=== PATIENT | female | born 1935 | race Caucasian/White ===

== ENCOUNTER 2018-02-27 09:44 | Inpatient (IN) ==
[2018-02-20 12:00] LABS: Appearance,Urine CLEAR; Bacteria,Urine 0 /hpf (0); Bilirubin,Urine NEG (NEG); Color,Urine STRAW; Glucose,Urine (UA) NEGATIVE (NEG); Leukocyte Esterase,Urine 75 /uL (NEG); Mucus,Urine FEW /hpf (0); Protein,Urine NEG (NEG); Specific Gravity,Urine 1.011 (1.000-1.035); Urine Blood NEG mg/dL (<0.03); Urine RBC 1 /hpf (0-1); Urine Squamous Epithelial Cell < 1 /hpf (0-4); Urine WBC 6 /hpf (0-4); Urobilinogen,Urine NEG (NEG)
[2018-02-20 13:11] LABS: Basophils # (Auto) 0 K/mcL (0.0-0.3); Basophils % (Auto) 0.4 % (0.0-2.0); Eosinophils # (Auto) 0 K/mcL (0.0-0.7); Granulocytes % (Auto) 64.2 % (38.0-78.0); Lymphocytes # (Auto) 1.2 K/mcL (1.5-4.8); Lymphocytes % (Auto) 26.2 % (15.5-49.0); Mean Cell Volume 85.6 fL (80.0-100.0); Mean Corpuscular HGB Conc 33.6 g/dL (31.0-36.0); Mean Corpuscular Hemoglobin 28.8 pg (26.0-34.0); Monocytes # (Auto) 0.4 K/mcL (0.1-0.9); Monocytes % (Auto) 8.2 % (1.0-12.0); Platelet Count 201 K/mcL (140-440); RBC 4.13 M/mcL (4.00-5.20); Red Cell Distribution Width 13.8 % (11.5-14.5)
[2018-02-20 13:18] LABS: Blood Urea Nitrogen 18 mg/dl (8-23)
[~2018-02-27 09:44] MED LIST: ACETAMINOPHEN 500 MG TABLET PO SCH; CELECOXIB 200 MG CAPSULE PO SCH; IPRATROPIUM/ALBUTEROL 3 ML AMPUL.NEB NEB PRN; PREGABALIN 75 MG CAPSULE PO SCH; ceFAZolin 1 GM VIAL IV SCH; oxyCODONE 10 MG TAB.ER.12H PO SCH
[2018-02-27] MEDS ORDERED: SCOPOLAMINE 1 PATCH PATCH TOPICAL PRN (10:42)
[2018-02-27 11:20] LABS: Appearance,Urine CLEAR; Bacteria,Urine 0 /hpf (0); Bilirubin,Urine NEG (NEG); Color,Urine YELLOW; Glucose,Urine (UA) NEGATIVE (NEG); Leukocyte Esterase,Urine 75 /uL (NEG); Mucus,Urine FEW /hpf (0); Protein,Urine NEG (NEG); Specific Gravity,Urine 1.017 (1.000-1.035); Urine Blood NEG mg/dL (<0.03); Urine RBC 1 /hpf (0-1); Urine Squamous Epithelial Cell 0 /hpf (0-4); Urine WBC 3 /hpf (0-4); Urobilinogen,Urine NEG (NEG)
[2018-02-27] MEDS ORDERED: DEXAMETHASONE 10 MG/ML VIAL IV ONE (13:20)
[2018-02-27] MEDS ORDERED: ONDANSETRON 4 MG/2 ML VIAL IV ONE (13:20)
[2018-02-27] MEDS ORDERED: fentaNYL 250 MCG/5 ML VIAL IV ONE (13:20)
[2018-02-27] MEDS ORDERED: ROPIVACAINE HCL/PF 30 ML VIAL IJ ONE (13:20)
[2018-02-27] MEDS ORDERED: LIDOCAINE HCL/PF 100 MG/5 ML SYRINGE IV ONE (13:20)
[2018-02-27] MEDS ORDERED: MIDAZOLAM 2 MG/2 ML VIAL IV ONE (13:20)
[2018-02-27] MEDS ORDERED: TRANEXAMIC ACID 1,000 MG/10 ML VIAL IV ONE ×2 (13:20→14:37)
[2018-02-27] MEDS ORDERED: SUCCINYLCHOLINE 20 MG/ML ML IV ONE (13:20)
[2018-02-27] MEDS ORDERED: PROPOFOL 200 MG/20 ML VIAL IV ONE (13:20)
[2018-02-27] MEDS ORDERED: GENTAMICIN SULFATE 800 MG/20 ML VIAL IR ONE (13:45)
[2018-02-27] MEDS ORDERED: POLYETHYLENE GLYCOL 3350 17 GM PACKET PO PRN (14:37)
[2018-02-27] MEDS ORDERED: BISACODYL 10 MG SUPP.RECT PR PRN (14:37)
[2018-02-27] MEDS ORDERED: MAGNESIUM HYDROXIDE 30 ML ORAL.SUSP PO PRN (14:37)
[2018-02-27] MEDS ORDERED: ACETAMINOPHEN 325 MG TABLET PO PRN (14:37)
[2018-02-27] MEDS ORDERED: HYDROmorphone 2 MG/ML VIAL IV PRN (14:37)
[2018-02-27] MEDS ORDERED: FLEETS ADULT ENEMA PR PRN (14:37)
[2018-02-27] MEDS ORDERED: KETOROLAC 15 MG/ML VIAL IV PRN (14:37)
[2018-02-27] MEDS ORDERED: BENZOCAINE/MENTHOL 1 LOZENGE PO PRN (14:37)
[2018-02-27] MEDS ORDERED: TEMAZEPAM 15 MG CAPSULE PO PRN (14:37)
--- NOTE | 2018-02-27 14:53 | Operative Note ---
DATE OF OPERATION: 02/27/2018 PREOPERATIVE DIAGNOSIS: Right shoulder rotator cuff arthropathy and biceps tendinopathy. 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 PROCEDURE: Right reverse total shoulder and biceps tenodesis. SURGEON: Mikey Mccullough MD GRAIN BROKER: Selvin Ramirez PA-C ANESTHESIA: General LMA anesthesia. COMPLICATIONS: None. DESCRIPTION OF PROCEDURE: The patient was brought to the operating room and put to sleep with general LMA anesthesia. Once asleep, the patient had the right shoulder sterilely prepped and draped in the usual sterile fashion. Once done, we then confirmed the operative site, placed Ioban over the skin and made a deltopectoral approach. The deltoid and cephalic veins were retracted laterally, and exposed the joint. We retracted the conjoint tendon medially and then released the subscap tendon. Once released, we then identified the bicep tendon which was released and then biceps tenodesed to the pec major in the bicipital groove with two [id number] Ethibond stitches. We then prepared the glenoid, made the humeral head cut-130 degree angle was used at the end of the articular surface. Once this was cut at 20 degrees retroversion we then subluxed the head posteriorly. We then performed a 360 degree capsular release of the glenoid, placed a central pin and reamed to size. A 32 mm glenosphere was placed, the metaglene and glenosphere with a central screw measuring 32, 28 and 24. Once well fixed we then placed a glenosphere with 2 mm of offset with no eccentricity. This was tapped into place. We then prepared the humerus which then was prepared using a size 12 stem with bone cement and a +6 liner. This fit very nicely. We repaired the subscap anteriorly with a #1 Stratafix. We took the shoulder through full range of motion, irrigated thoroughly and then closed the deltopectoral interval and the subcutaneous tissues, placing an adhesive closure. The patient tolerated this well without complication. A DonJoy sling was fitted and given to the patient. [facility]:len Job ID: [id number] Doc ID: [id number] Mikey Mccullough MD
--- NOTE | 2018-02-27 15:52 | XRay Report ---
CLINICAL INFORMATION: Reason for Exam:Post-OP Total Shoulder COMPARISON: None. FINDINGS: Total shoulder prostheses is anatomically aligned. No osseous abnormality. Periarticular gas soft tissue thickening seen as expected IMPRESSION: Negative Interpreted and Authenticated by: Mitesh Hunt 02/27/18
[2018-02-27] MEDS: 0.45 % SODIUM CHLORIDE 1,000 ML IV SCH (17:01)
[2018-02-27] MEDS: ONDANSETRON 4 MG/2 ML VIAL IV PRN ×2 (17:09→21:15)
[2018-02-27] MEDS ORDERED: SENNOSIDES 1 TABLET PO SCH (21:00)
[2018-02-27] MEDS: ceFAZolin 1 GM VIAL IV SCH (21:15)
[2018-02-27] MEDS: DOCUSATE SODIUM 100 MG CAPSULE PO SCH (21:16)
[2018-02-27] MEDS: 0.9 % SODIUM CHLORIDE 10 ML SYRINGE IV SCH (21:20)
[2018-02-28] MEDS: 0.45 % SODIUM CHLORIDE 1,000 ML IV SCH ×2 (02:37→11:16)
[2018-02-28] MEDS: ceFAZolin 1 GM VIAL IV SCH (05:09)
[2018-02-28] MEDS: 0.9 % SODIUM CHLORIDE 10 ML SYRINGE IV SCH (05:16)
[2018-02-28] MEDS: [UNRECOGNIZED DRUG - OTHER] OU SCH ×2 (06:54→11:12)
[2018-02-28] MEDS: SYSTANE OU SCH ×2 (06:54→11:12)
--- NOTE | 2018-02-28 07:37 | Orthopedic Progress Note ---
Subjective Patient information: Note initiated : 02/28/18 at 7:35 am Service Date, if different from initiated Date: [] Patient: Khalida Benitez 82 y/o F admitted on 02/27/18 for Right Reverse Total Shoulder Arthroplasty with. Chief Complaint: [Pt is stable this morning on post operative day 1 without any significant concerns or complaints. Patients vital signs have remained stable. Patients dressing is dry and is grossly instact from a neurovascular and motor standpoint. Patients 10 point ROS is otherwise negative. ] Objective Vital signs: Vital Signs Temp Pulse Pulse Pulse Resp BP Pulse Ox 02/28/18 04:30 98.5 F 57 L 14 94/51 93 02/27/18 23:50 97.7 F 65 14 121/69 96 02/27/18 20:54 64 16 98 02/27/18 19:38 97.4 F 60 16 132/79 98 02/27/18 16:30 136/75 99 02/27/18 16:15 129/78 99 02/27/18 16:00 143/78 99 02/27/18 15:45 152/81 99 02/27/18 15:30 97.7 F 16 166/81 97 02/27/18 15:25 96.9 F L 68 83 16 146/58 97 02/27/18 15:10 96.9 F L 65 83 16 136/53 96 02/27/18 14:55 96.1 F L 68 83 16 127/53 98 02/27/18 14:50 96.1 F L 64 83 12 137/68 99 02/27/18 14:45 96.1 F L 63 83 12 144/79 99 02/27/18 14:40 96.1 F L 83 83 12 130/61 97 02/27/18 10:06 98.3 F 16 126/83 97 Intake and Output 02/27/18 02/28/18 02/28/18 21:59 05:59 13:59 Intake Total 1400 / 1400 1350 / 1350 Output Total 850 / 850 950 / 950 Balance 550 / 550 400 / 400 Intake: IV 1000 / 1000 Sodium Chloride 0.45% 1,000 ml 1000 / 1000 @ 100 mls/hr IV .Q10H [facility] Rx#: [id number] Oral 200 / 200 350 / 350 IV - Manual Only 1200 / 1200 Output: Void Amount 650 / 650 950 / 950 Emesis 200 / 200 Other: Meal tuna sandwich and jello Percent of Meal Consumed 75% Feeding Ability Assist with Tray Set Up # Voids 1 1 Weight 126 lb Intake & Output: Intake & Output 02/27/18 02/28/18 02/28/18 21:59 05:59 13:59 Intake Total 1400 / 1400 1350 / 1350 Output Total 850 / 850 950 / 950 Balance 550 / 550 400 / 400 Weight 126 lb Intake: IV 1000 / 1000 Sodium Chloride 0.45% 1,000 ml 1000 / 1000 @ 100 mls/hr IV .Q10H [facility] Rx#: [id number] Oral 200 / 200 350 / 350 IV - Manual Only 1200 / 1200 Output: Void Amount 650 / 650 950 / 950 Emesis 200 / 200 Other: Meal tuna sandwich and jello Percent of Meal Consumed 75% Feeding Ability Assist with Tray Set Up # Voids 1 1 Incision: Yes healing Incision clean and dry: Yes Dressing: Yes clean Weight bearing status: full Neurological exam IM: Yes motor sensory intact, Yes neurovascular intact Extremities exam IM: Yes neurovascular intact - Labs CBC & BMP: 02/20/18 11:11 02/20/18 11:11 Labs: Orthopedic Labs 02/20/18 11:11 PT 13.6 INR 1.0 APTT 31 02/20/18 11:11 Hgb 11.9 L Hct 35.3 L Assessment and Plan (1) Hx of total shoulder replacement The patient has been educated regarding dressing care, Physical Therapy recommendations, home exercises, restrictions, and follow up appointments. The patient has had all necessary DME prescribed. The patient has remained relatively stable during their hospital course. Status: Acute
--- NOTE | 2018-02-28 07:39 | Discharge Summary ---
Ortho Discharge - TSA - Patient Instructions Diet: Regular Diet Activity: activity as tolerated, weight bearing as tolerated Total Shoulder Protocol: Leave immobilizer in place except for bathing and ROM. Abduction pillow. Continue to wear sling until seen by physician. Codman Pendulum : These exercises use momentum produced by your body to move your shoulder joint. Bend your knees and shift your weight to your front leg, then back, allowing your arm to swing in the same directions. Using the same technique, alternately shift your weight between your right and left legs, allowing your arm to swing from side to side. These exercises are also performed in counterclockwise and clockwise circular motions. Typically these exercises are performed several times per day, for a set number repetitions or minutes, such as 20 times in a row or 5 minutes at a time. Dressing Care: May shower in 2 days - Problem Maintenance (1) Hx of total shoulder replacement Status: Acute - Follow Up Plan Follow Up Appointments: Selvin Ramirez PA-C [Physician [employer]rub [employer]er] - 03/14/18 10:40 am Disposition: Home, Self-Care Prognosis: Good Rehab Potential: Good I certify that the patient requires SNF services: No Overall status at discharge: patient is progressing back to baseline - Orders For Discharge Prescriptions: Docusate Sodium [Colace] 100 mg PO BID #60 cap oxyCODONE/APAP [Percocet 5-325 mg] 1 - 2 tab PO Q4HP PRN #75 tab PRN Reason: Pain Level 3-6
[2018-02-28] MEDS ORDERED: OXYBUTYNIN CHLORIDE 5 MG TAB.XL.24H PO SCH (09:00)
[2018-02-28] MEDS ORDERED: MULTIVIT,THER IRON,CA,FA & MIN 1 TABLET PO SCH (09:00)
[2018-02-28] MEDS ORDERED: [UNRECOGNIZED DRUG - OTHER] PO SCH (09:00)
[2018-02-28] MEDS ORDERED: [UNRECOGNIZED DRUG - OTHER] PO SCH (09:00)
[2018-02-28] MEDS ORDERED: B6 PO SCH (09:00)
[2018-02-28] MEDS ORDERED: PYG PO SCH (09:00)
[2018-02-28] MEDS ORDERED: FISH OIL 1,000 MG CAPSULE PO SCH (09:00)
[2018-02-28] MEDS ORDERED: SAW PALMETTO PO SCH (09:00)
[2018-02-28] MEDS ORDERED: PUMPKIN PO SCH (09:00)
[2018-02-28] MEDS ORDERED: UBIDECARENONE PO SCH (09:00)
[2018-02-28] MEDS: DOCUSATE SODIUM 100 MG CAPSULE PO SCH (09:25)
[2018-02-28] MEDS: oxyCODONE/APAP 5/325MG TABLET PO PRN ×3 (11:37→15:21)
== END 2018-02-28 15:25 | disposition home or self-care (01) | DRG 483 ==
LOC: MEDSUR 09:44
PROVIDERS: ADMIT Orthopaedic Surgery; ATTEND Orthopaedic Surgery